=== PATIENT | female | born 2000 | race Two or more races ===

== ENCOUNTER 2021-07-12 21:40 | Observation (INO) | payer SELFPAY ==
--- NOTE | 2021-07-12 22:40 | PDOC ---
GENERAL General: 21yrs old 40 weeks admitted to Hospital 9cm dilated pt in active labor. ALLERGIES Allergies: Allergies Coded Allergies Type Severity Reaction Last Updated Verified No Known Drug Allergies 07/12/21 No ASSESSMENT & PLAN A&P Delivered an alive Male baby 8lbs 2.8oz at 22.14hours. EBL 300cc.No Problem. Midline Vaginal Tear sutured with 2 O chromic catgut sutures. Justifications for Admission Other Justification VIV BLANCO MD Jul 12, 2021 22:40
[2021-07-12] MEDS ORDERED: AMPICILLIN SODIUM 2 GM in IV NORMAL SALINE 100ML 100 ML IV ONE (23:30)
[2021-07-12] MEDS: IV RINGERS,LACTATED 1000ML 1,000 ML IV SCH (23:35)
[2021-07-13] MEDS: IV RINGERS,LACTATED 1000ML 1,000 ML IV SCH (01:26)
[2021-07-13 02:25] LABS: BILIRUBIN,URINE NEGATIVE (NEG); CLARITY,URINE CLEAR; COLOR,URINE AMBER; NITRITE,URINE NEGATIVE (NEG); PROTEIN,URINE 30 mg/dL (NEG-TRACE); UROBILINOGEN,URINE 0.2 mg/dL (0.2 mg/dL)
[2021-07-13 02:31] LABS: BARBITURATES NEG (NEG); BENZODIAZEPINES NEG (NEG); CANNABINOIDS NEG (NEG); COCAINE NEG (NEG); METHADONE NEG (NEG); OPIATES NEG (NEG); PHENCYCLIDINE NEG (NEG)
[2021-07-13 02:45] LABS: RBC,URINE >40 /HPF (0-2); WBC,URINE TNTC /HPF (0-4)
[2021-07-13 02:46] LABS: BACTERIA,URINE MODERATE /HPF (0-FEW)
[2021-07-13 02:47] LABS: AMPHETAMINE/METHAMPHETAMINE NEG (NEG)
== END 2021-07-13 03:50 | disposition home or self-care (01) ==
LOC: 3 SO LND 21:40
PROVIDERS: ADMIT Obstetrics & Gynecology; ATTEND Obstetrics & Gynecology
DX: O62.9 Abnormality of forces of labor, unspecified (principal); O46.93 Antepartum hemorrhage, unspecified, third trimester; O23.43 Unspecified infection of urinary tract in pregnancy, third trimester; Z3A.35 35 weeks gestation of pregnancy
CPT/HCPCS: 59025; 80307; 81001; 87086; 96361; 96365; G0378; J0290; J7120; G0379

== ENCOUNTER 2021-08-06 19:43 | Observation (INO) | payer SELFPAY ==
[2021-08-06] MEDS ORDERED: IV RINGERS,LACTATED 1000ML 1,000 ML IV PRN (19:45)
[2021-08-06 20:32] LABS: BILIRUBIN,URINE NEGATIVE (NEG); CLARITY,URINE CLOUDY; COLOR,URINE YELLOW; NITRITE,URINE NEGATIVE (NEG); PROTEIN,URINE 30 mg/dL (NEG-TRACE)
[2021-08-06 20:49] LABS: BACTERIA,URINE 0 /HPF (0-FEW); TRICHOMONAS,URINE PRESENT; WBC,URINE TNTC /HPF (0-4)
[2021-08-06] MEDS ORDERED: metroNIDAZOLE 500 MG TABLET PO ONE (22:00)
== END 2021-08-06 21:43 | disposition home or self-care (01) ==
LOC: 3 SO LND 19:43
PROVIDERS: ADMIT Obstetrics & Gynecology; ATTEND Obstetrics & Gynecology
DX: O62.9 Abnormality of forces of labor, unspecified (principal); O26.893 Other specified pregnancy related conditions, third trimester; R10.9 Unspecified abdominal pain; Z3A.39 39 weeks gestation of pregnancy
CPT/HCPCS: 81001; 87086; G0378; G0379; 59025

== ENCOUNTER 2021-08-21 19:47 | Inpatient (IN) | payer SELFPAY ==
[~2021-08-21] VITALS: Ht 160 cm; Wt 77.2 kg
[2021-08-21] MEDS ORDERED: IV RINGERS,LACTATED 1000ML 1,000 ML IV PRN (20:00)
[2021-08-21 20:59] LABS: BILIRUBIN,URINE NEGATIVE (NEG); CLARITY,URINE CLEAR; COLOR,URINE YELLOW; NITRITE,URINE NEGATIVE (NEG); PH,URINE 6.5 (<5.0-8.0); PROTEIN,URINE NEGATIVE (NEG-TRACE); UROBILINOGEN,URINE 0.2 mg/dL (0.2 mg/dL)
[2021-08-21 21:08] LABS: BACTERIA,URINE FEW /HPF (0-FEW); RBC,URINE 0 /HPF (0-2)
[2021-08-21 21:09] LABS: TRICHOMONAS,URINE PRESENT
[2021-08-21 21:32] LABS: BASO % 0 % (0-3); EOS # 0.1 x10^3/uL (0.0-0.7); EOS % 1 % (0-3); HEMATOCRIT 26.7 % (36.0-47.0); HEMOGLOBIN 8.8 g/dL (12.0-15.5); LYMPH # 2.5 x10^3/uL (1.0-4.8); LYMPH % 27 % (24-48); MEAN CORPUSCULAR HEMOGLOBIN 25 pg (25-35); MEAN CORPUSCULAR HGB CONC 33 g/dL (31-37); MEAN CORPUSCULAR VOLUME 77 fL (79-100); MONO # 0.6 x10^3/uL (0.0-1.1); MONO % 6 % (0-9); NEUT # 6.2 x10^3/uL (1.8-7.7); NEUT % 66 % (31-73); PLATELET COUNT 312 x10^3/uL (140-400); RED CELL DISTRIBUTION WIDTH 15.9 % (11.5-14.5); WHITE BLOOD COUNT 9.5 x10^3/uL (4.0-11.0)
[2021-08-21] MEDS ORDERED: AZITHROMYCIN 250 MG TABLET. PO ONE (22:00)
[2021-08-21] MEDS ORDERED: TERBUTALINE 1 MG/ML VIAL. SQ PRN (22:15)
[2021-08-21] MEDS ORDERED: BUTORPHANOL 2 MG/ML VIAL. IVP PRN ×2 (22:15)
[2021-08-21] MEDS ORDERED: 0.9 % SODIUM CHLORIDE 10 ML DISP.SYRIN. IV PRN (22:15)
[2021-08-21] MEDS ORDERED: LIDOCAINE 1% PF 30 ML VIAL. INJ PRN (22:15)
[2021-08-21] MEDS ORDERED: OXYTOCIN 30 UNIT/500 ML PREMIX 500 ML IV PRN ×2 (22:15)
[2021-08-21] MEDS ORDERED: ACETAMINOPHEN 325 MG TABLET. PO PRN (22:15)
--- NOTE | 2021-08-21 22:15 | PDOC1 ---
ALUM OPERATOR H&P Date of Admission: Date of Admission: Aug 21, 2021 at 19:47 History of Present Illness: EDC: 08/13/21 LMP: 11/06/20 21y @ 41.1 by L=18 presents with ctxs. The pt was initially thought to be 5 cm dilated, but on recheck an hour later she found to actually be 3 cm. Since the pt was a wk past her EDC, we discussed options of observation overnight followed by indxn tomorrow vs RLTCS. The pts first delivery was a 6 month stillbirth that came vaginally. Her next delivery was a TC/S for breech. Typically a C/S at term would be a LTCS, so we discussed mode of delivery at out initial encounter together. At that time I explained that two biggest factor in deciding b/t TOLAC or RLTCS was rate of reoccurrence and risk of rupture. Explained that her rate of rupture was low (~1-2%). There was some confusion in the medical record that she may be a classical C/S, but actually her skin incision was vertical midline. The pt decided tonight that she would prefer to be observed overnight and if she had not went into active labor by the morning to try an indxn. The pts has also been complicated by multiple pos Chl. She states that she has been taking the meds for the Chl. She was last txed 07/23/21, but has not been retested. She had not been with her partner for the last month at that time. The pt is also on Fe for anemia. PMH: Denies PSH: 2017 Meds: PNV, Fe All: NKDA Medical History: 6month stillbirth 2014, : yes. OBHx: 6 mo (stillborn), T LTCS for breech SH: no tob, no EtOH FH: noncontributory Medications: Meds: Current Medications Medications (Trade) Dose Ordered Sig/[place] Route PRN Reason Start Time Stop Time Status Last Admin Dose Admin Ringer's Solution 1,000 ml @ 125 mls/hr Q8H PRN IV hydration 08/21/21 20:00 08/21/21 21:28 Azithromycin (Zithromax) 1,000 mg 1X ONCE PO 08/21/21 22:00 08/21/21 22:01 DC 08/21/21 21:29 Allergies: Coded Allergies: No Known Drug Allergies (Unverified , 07/12/21) Physical Exam: PE: GENERAL: No apparent distress. Alert and oriented. HEENT: Head normocephalic, atraumatic. NECK: Supple LUNGS: Clear to auscultation. HEART: RRR, S1, S2 present, pulses intact ABDOMEN: Soft, positive bowel sounds. EXTREMITIES: No cyanosis or edema. NEUROLOGIC: Normal speech, normal tone PSYCHIATRIC: Normal affect, normal mood. SKIN: No ulceration. FHT: 120s +acels/no decels/mLTV [place]: 3-5 min SVE: 3/50/-3 Labs: Laboratory Tests Test 08/21/21 20:30 08/21/21 20:33 Urine Collection Type Unknown Urine Color Yellow Urine Clarity Clear Urine pH 6.5 (<5.0-8.0) Urine Specific [place] <=1.005 (1.000-1.030) Urine Protein Negative mg/dL (NEG-TRACE) Urine Glucose (UA) Negative mg/dL (NEG) Urine Ketones (Stick) Negative mg/dL (NEG) Urine Blood Negative (NEG) Urine Nitrite Negative (NEG) Urine Bilirubin Negative (NEG) Urine Urobilinogen Dipstick 0.2 mg/dL (0.2 mg/dL) Urine Leukocyte Esterase Moderate (NEG) Urine RBC 0 /HPF (0-2) Urine WBC 5-10 /HPF (0-4) Urine Squamous Epithelial Cells Mod /LPF Urine Bacteria Few /HPF (0-FEW) Urine Trichomonas Present White Blood Count 9.5 x10^3/uL (4.0-11.0) Red Blood Count 3.50 x10^6/uL (3.50-5.40) Hemoglobin 8.8 g/dL (12.0-15.5) L Hematocrit 26.7 % (36.0-47.0) L Mean Corpuscular Volume 77 fL (79-100) L Mean Corpuscular Hemoglobin 25 pg (25-35) Mean Corpuscular Hemoglobin Concent 33 g/dL (31-37) Red Cell Distribution Width 15.9 % (11.5-14.5) H Platelet Count 312 x10^3/uL (140-400) Neutrophils (%) (Auto) 66 % (31-73) Lymphocytes (%) (Auto) 27 % (24-48) Monocytes (%) (Auto) 6 % (0-9) Eosinophils (%) (Auto) 1 % (0-3) Basophils (%) (Auto) 0 % (0-3) Neutrophils # (Auto) 6.2 x10^3/uL (1.8-7.7) Lymphocytes # (Auto) 2.5 x10^3/uL (1.0-4.8) Monocytes # (Auto) 0.6 x10^3/uL (0.0-1.1) Eosinophils # (Auto) 0.1 x10^3/uL (0.0-0.7) Basophils # (Auto) 0.0 x10^3/uL (0.0-0.2) Laboratory Tests 08/21/21 20:33 Laboratory Tests 08/21/21 20:33 Assessment & Plan: A/P 21y @ 41.1 by L=18 1.) Ctxs no active laboring, will observe overnight, if does not go into active labor will begin indxn in the am 2.) Prev C/S x 1 - desires TOLAC 3.) H/o stillbirth 4.) Rub NI 5.) Anemia - Hgb 9.1, on Fe BID 6.) Chl pos last txed 07/23/21, ct/gc obtained on admission and pt txed again today 7.) TDAP given 07/22/21 8.) Fetus cat I FHT 9.) GBS neg KAREN LOZADA MD Aug 21, 2021 22:15
[2021-08-21 23:34] VITALS: BP 103/67
[2021-08-22] MEDS: IV RINGERS,LACTATED 1000ML 1,000 ML IV SCH ×2 (01:32→07:16)
[2021-08-22] MEDS ORDERED: ONDANSETRON PF 4 MG/2 ML VIAL. IVP PRN (04:05)
[2021-08-22] MEDS ORDERED: OXYTOCIN PREMIX 30 UNIT/500 ML NS BAG. IV ONE (05:30)
[2021-08-22] MEDS ORDERED: ROPIVacaine 0.2% PF 10 ML VIAL. ONE ×2 (09:52→10:00)
[2021-08-22] MEDS ORDERED: fentaNYL PF VIAL 100 MCG/2 ML VIAL ONE (09:52)
[2021-08-22] MEDS ORDERED: IV RINGERS,LACTATED 1000ML 1,000 ML IV ONE (10:00)
[2021-08-22] MEDS ORDERED: ePHEDrine PF IN SALINE 50 MG/10 ML SYRINGE. IV PRN (10:00)
[2021-08-22] MEDS ORDERED: fentaNYL PF VIAL 100 MCG/2 ML VIAL EPID ONE (10:00)
[2021-08-22] MEDS ORDERED: L&D EPIDURAL 50 ML SYRINGE. ONE (10:00)
[2021-08-22] MEDS ORDERED: NALOXONE 0.4 MG/ML VIAL. IV PRN (10:00)
[2021-08-22] MEDS ORDERED: ONDANSETRON PF 4 MG/2 ML VIAL. IV PRN (10:00)
--- NOTE | 2021-08-22 10:01 | PDOC ---
INSTRUCTOR WARPER PROGRESS NOTE Date of Service: DATE: 08/22/21 TIME: 10:00 Subjective: Pt observed overnight. SVE documented to 8 cm, but when check this am by me, very little cervical change. Pt with stretchy cervix so not surprising the difference in exams. Since minimal cervical change AROM performed. Light mec noted. After 2hrs time minimal change in cervical exam, so Pit started. Pt now requesting epidural. Objective: Vital Signs: Vital Signs Date Time Temp Pulse Resp B/P (MAP) Pulse Ox O2 Delivery O2 Flow Rate FiO2 08/21/21 23:34 97.8 90 20 103/67 (79) 98 Room Air 97.8 Vital Signs Date Time Temp Pulse Resp B/P (MAP) Pulse Ox O2 Delivery O2 Flow Rate FiO2 08/22/21 02:34 18 08/21/21 23:34 97.8 90 103/67 (79) 98 Room Air 97.8 Labs: Laboratory Tests Test 08/21/21 20:30 08/21/21 20:33 08/21/21 22:10 Urine Collection Type Unknown Urine Color Yellow Urine Clarity Clear Urine pH 6.5 (<5.0-8.0) Urine Specific [place] <=1.005 (1.000-1.030) Urine Protein Negative mg/dL (NEG-TRACE) Urine Glucose (UA) Negative mg/dL (NEG) Urine Ketones (Stick) Negative mg/dL (NEG) Urine Blood Negative (NEG) Urine Nitrite Negative (NEG) Urine Bilirubin Negative (NEG) Urine Urobilinogen Dipstick 0.2 mg/dL (0.2 mg/dL) Urine Leukocyte Esterase Moderate (NEG) Urine RBC 0 /HPF (0-2) Urine WBC 5-10 /HPF (0-4) Urine Squamous Epithelial Cells Mod /LPF Urine Bacteria Few /HPF (0-FEW) Urine Trichomonas Present White Blood Count 9.5 x10^3/uL (4.0-11.0) Red Blood Count 3.50 x10^6/uL (3.50-5.40) Hemoglobin 8.8 g/dL (12.0-15.5) L Hematocrit 26.7 % (36.0-47.0) L Mean Corpuscular Volume 77 fL (79-100) L Mean Corpuscular Hemoglobin 25 pg (25-35) Mean Corpuscular Hemoglobin Concent 33 g/dL (31-37) Red Cell Distribution Width 15.9 % (11.5-14.5) H Platelet Count 312 x10^3/uL (140-400) Neutrophils (%) (Auto) 66 % (31-73) Lymphocytes (%) (Auto) 27 % (24-48) Monocytes (%) (Auto) 6 % (0-9) Eosinophils (%) (Auto) 1 % (0-3) Basophils (%) (Auto) 0 % (0-3) Neutrophils # (Auto) 6.2 x10^3/uL (1.8-7.7) Lymphocytes # (Auto) 2.5 x10^3/uL (1.0-4.8) Monocytes # (Auto) 0.6 x10^3/uL (0.0-1.1) Eosinophils # (Auto) 0.1 x10^3/uL (0.0-0.7) Basophils # (Auto) 0.0 x10^3/uL (0.0-0.2) Treponema pallidum Antibody Nonreactive (Nonreactive) SARS-CoV-2 Antigen (Rapid) Negative (NEGATIVE) Laboratory Tests 08/21/21 20:33 Laboratory Tests 08/21/21 20:33 Physical Exam: GENERAL: No apparent distress. Alert and oriented. HEENT: Head normocephalic, atraumatic. NECK: Supple LUNGS: Clear to auscultation. HEART: RRR, S1, S2 present, pulses intact ABDOMEN: Soft, positive bowel sounds. EXTREMITIES: No cyanosis or edema. NEUROLOGIC: Normal speech, normal tone PSYCHIATRIC: Normal affect, normal mood. SKIN: No ulceration. FHT: 120s +acels/no decels/mLTV [place]: 1-2 min SVE: 50/-2 Assessment & Plan: A/P 21y @ 41.2 by L=18 1.) Latent labor ctxs overnight, minimal change. AROMed this am. No change control coordinator 2 hrs so Pit started 2.) Prev C/S x 1 - desires TOLAC 3.) H/o stillbirth 4.) Rub NI 5.) Anemia - Hgb 9.1, on Fe BID 6.) Chl pos last txed 07/23/21, ct/gc obtained on admission and pt txed again on admission 7.) TDAP given 07/22/21 8.) Fetus cat I FHT, light mec 9.) GBS neg KAREN LOZADA MD Aug 22, 2021 10:01
[2021-08-22] MEDS: L&D EPIDURAL SYRINGE 50 ML EPID PRN ×2 (13:10→16:00)
[2021-08-22] MEDS ORDERED: METHYLERGONOVINE MALEATE 0.2 MG/ML VIAL. IM ONE ×2 (17:08→17:15)
--- NOTE | 2021-08-22 17:18 | PDOC4 ---
VAGINAL DELIVERY DATE DATE: 08/22/21 TIME: 17:17 TIME Patient delivered a viable female over intact perineum at 1654. Wt 7 lb 12 oz. Apgars 8/9. Placenta delivered spontaneously, intact with 3VC. 2nd degree laceration repaired with 20 vicryl in nml fashion. Methergine given due to slight continuous bleeding. Good hemostasis noted. 20 U of Pit given with IVF. EBL 300 cc. Baby noted to have fever, so mother checked after delivery and found to have an elevated temp as well. WEIGHT Weight [ ] KAREN LOZADA MD Aug 22, 2021 17:18
[2021-08-22] MEDS ORDERED: ACETAMINOPHEN 325 MG TABLET. PO PRN (17:30)
[2021-08-22] MEDS ORDERED: TDaP (Adacel) per PROTOCOL. MC PRN (17:30)
[2021-08-22] MEDS ORDERED: oxyCODONE/APAP 5/325 1 TAB TABLET PO PRN (17:30)
[2021-08-22] MEDS ORDERED: PHENYLEPH/MINERAL OIL/PETROLAT RECTAL OINTMENT TUBE. RC PRN (17:30)
[2021-08-22] MEDS ORDERED: OXYTOCIN 30 UNIT/500 ML PREMIX 500 ML IV PRN (17:30)
[2021-08-22] MEDS ORDERED: MAGNESIUM HYDROXIDE 2,400 MG/30 ML ORAL.SUSP. PO PRN (17:30)
[2021-08-22] MEDS ORDERED: SIMETHICONE 80 MG TAB.CHEW PO PRN (17:30)
[2021-08-22] MEDS ORDERED: MAG HYDROX/ALUMINUM HYD/SIMETH 30 ML ORAL.SUSP PO PRN (17:30)
[2021-08-22] MEDS ORDERED: MMR per PROTOCOL. MC PRN (17:30)
[2021-08-22] MEDS ORDERED: ZOLPIDEM 5 MG TABLET. PO PRN (17:30)
[2021-08-22] MEDS ORDERED: diphenhydrAMINE HCL 25 MG CAPSULE PO PRN (17:30)
[2021-08-22] MEDS ORDERED: BENZOCAINE 20% TOPICAL AEROSOL SPRAY 57GM CAN. TP PRN (17:30)
[2021-08-22] MEDS ORDERED: 0.9 % SODIUM CHLORIDE 10 ML DISP.SYRIN. IV PRN (17:30)
[2021-08-22] MEDS ORDERED: HYDROCORTISONE 1% TOPICAL OINTMENT 30GM TUBE. TP PRN (17:30)
[2021-08-22] MEDS: IBUPROFEN 400 MG TABLET. PO PRN (19:15)
[2021-08-22 20:00] VITALS: BP 94/56
[2021-08-23] VITALS (7 sets, daily range): BP systolic 81–98; BP diastolic 36–57
[2021-08-23 05:02] LABS: HEMATOCRIT 21.4 % (36.0-47.0); RED BLOOD COUNT 2.76 x10^6/uL (3.50-5.40); RED CELL DISTRIBUTION WIDTH 15.7 % (11.5-14.5)
[2021-08-23 05:05] LABS: HEMOGLOBIN 6.8 g/dL (12.0-15.5)
--- NOTE | 2021-08-23 05:08 | NUR ---
Lab phoned unit with critical lab results. This am hgb 6.8. hgb on admit 08/22/[address] Martinez paged and given critical lab results of hgb 6.8. No further orders given at this time.
[2021-08-23] MEDS: PRENATAL MULTIVITAMIN TABLET. PO SCH (08:59)
[2021-08-23] MEDS: IBUPROFEN 400 MG TABLET. PO PRN (09:00)
[2021-08-23] MEDS: FERROUS SULFATE 325 MG TABLET. PO SCH ×2 (09:01→17:41)
[2021-08-23] MEDS: DOCUSATE SODIUM 100 MG CAPSULE. PO PRN ×2 (09:01→17:41)
[2021-08-23] MEDS ORDERED: metroNIDAZOLE 500 MG TABLET PO ONE (09:15)
--- NOTE | 2021-08-23 10:58 | PDOC ---
SUPERVISOR FRAMING MILL PROGRESS NOTE Date of Service: DATE: 08/23/21 TIME: 10:58 Subjective: Pt with good pain control. Lon PO. Voiding. Minimal lochia. Denies f/c Objective: Vital Signs: Vital Signs Date Time Temp Pulse Resp B/P (MAP) Pulse Ox O2 Delivery O2 Flow Rate FiO2 08/22/21 13:10 18 Room Air 08/22/21 20:00 99.6 88 94/56 (69) 97 99.6 Vital Signs Date Time Temp Pulse Resp B/P (MAP) Pulse Ox O2 Delivery O2 Flow Rate FiO2 08/23/21 08:00 98.6 78 16 85/36 (52) 98 Room Air 98.6 Labs: Laboratory Tests Test 08/23/21 04:30 White Blood Count 14.0 x10^3/uL (4.0-11.0) H Red Blood Count 2.76 x10^6/uL (3.50-5.40) L Hemoglobin 6.8 g/dL (12.0-15.5) *L Hematocrit 21.4 % (36.0-47.0) L Mean Corpuscular Volume 78 fL (79-100) L Mean Corpuscular Hemoglobin 25 pg (25-35) Mean Corpuscular Hemoglobin Concent 32 g/dL (31-37) Red Cell Distribution Width 15.7 % (11.5-14.5) H Platelet Count 233 x10^3/uL (140-400) Laboratory Tests 08/23/21 04:30 Laboratory Tests 08/23/21 04:30 Physical Exam: GENERAL: No apparent distress. Alert and oriented. HEENT: Head normocephalic, atraumatic. NECK: Supple LUNGS: Clear to auscultation. HEART: RRR, S1, S2 present, pulses intact ABDOMEN: Soft, positive bowel sounds. EXTREMITIES: No cyanosis or edema. NEUROLOGIC: Normal speech, normal tone PSYCHIATRIC: Normal affect, normal mood. SKIN: No ulceration. FFNT below umb No C/C/E Assessment & Plan: A/P 21y PPD #1 s/p 1.) PP doing well 2.) Fever immediately after delivery AF since, elevated WBC 3.) Rub NI 4.) Anemia - Hgb 8.8 -> 6.8, on Fe BID 5.) Chl pos last txed 07/23/21, txed again on admission, ct/c obtained on admission pending 6.) Trich on UA Flagyl ordered 7.) TDAP given 07/22/21 8.) Cont PP care KAREN LOZADA MD Aug 23, 2021 10:58
[2021-08-24] VITALS (7 sets, daily range): BP systolic 76–111; BP diastolic 53–65
[2021-08-24 05:38] LABS: BASO % 0 % (0-3); EOS # 0.2 x10^3/uL (0.0-0.7); EOS % 2 % (0-3); LYMPH # 2.7 x10^3/uL (1.0-4.8); LYMPH % 25 % (24-48); MEAN CORPUSCULAR HEMOGLOBIN 25 pg (25-35); MEAN CORPUSCULAR HGB CONC 32 g/dL (31-37); MEAN CORPUSCULAR VOLUME 78 fL (79-100); MONO # 0.6 x10^3/uL (0.0-1.1); MONO % 5 % (0-9); NEUT # 7.2 x10^3/uL (1.8-7.7); NEUT % 67 % (31-73); PLATELET COUNT 250 x10^3/uL (140-400); RED BLOOD COUNT 2.64 x10^6/uL (3.50-5.40); RED CELL DISTRIBUTION WIDTH 15.8 % (11.5-14.5); WHITE BLOOD COUNT 10.7 x10^3/uL (4.0-11.0)
[2021-08-24 05:58] LABS: HEMATOCRIT 20.5 % (36.0-47.0); HEMOGLOBIN 6.6 g/dL (12.0-15.5)
[2021-08-24] MEDS: DOCUSATE SODIUM 100 MG CAPSULE. PO PRN ×2 (08:17→18:32)
[2021-08-24] MEDS: FERROUS SULFATE 325 MG TABLET. PO SCH ×2 (08:17→18:32)
[2021-08-24] MEDS: PRENATAL MULTIVITAMIN TABLET. PO SCH (08:17)
[2021-08-24] MEDS: IBUPROFEN 400 MG TABLET. PO PRN ×2 (08:18→18:33)
--- NOTE | 2021-08-24 11:52 | PDOC ---
WIRE HARNESS DESIGN ENGINEER PROGRESS NOTE Date of Service: DATE: 08/24/21 TIME: 11:51 Subjective: Pt with good pain control. Lon PO. Voiding. Minimal lochia. Denies f/c. Pt denies lightheadedness or dizziness. Discussed transfusion vs Fe alone. Due to the pts sporadic Fe intact during it was felt that it would be better to transfuse Objective: Vital Signs: Vital Signs Date Time Temp Pulse Resp B/P (MAP) Pulse Ox O2 Delivery O2 Flow Rate FiO2 08/23/21 08:00 98.6 78 16 85/36 (52) 98 Room Air 98.6 Vital Signs Date Time Temp Pulse Resp B/P (MAP) Pulse Ox O2 Delivery O2 Flow Rate FiO2 08/24/21 11:18 98.2 85 16 76/53 98.2 08/24/21 08:00 96 Room Air Labs: Laboratory Tests Test 08/24/21 05:20 White Blood Count 10.7 x10^3/uL (4.0-11.0) Red Blood Count 2.64 x10^6/uL (3.50-5.40) L Hemoglobin 6.6 g/dL (12.0-15.5) *L Hematocrit 20.5 % (36.0-47.0) *L Mean Corpuscular Volume 78 fL (79-100) L Mean Corpuscular Hemoglobin 25 pg (25-35) Mean Corpuscular Hemoglobin Concent 32 g/dL (31-37) Red Cell Distribution Width 15.8 % (11.5-14.5) H Platelet Count 250 x10^3/uL (140-400) Neutrophils (%) (Auto) 67 % (31-73) Lymphocytes (%) (Auto) 25 % (24-48) Monocytes (%) (Auto) 5 % (0-9) Eosinophils (%) (Auto) 2 % (0-3) Basophils (%) (Auto) 0 % (0-3) Neutrophils # (Auto) 7.2 x10^3/uL (1.8-7.7) Lymphocytes # (Auto) 2.7 x10^3/uL (1.0-4.8) Monocytes # (Auto) 0.6 x10^3/uL (0.0-1.1) Eosinophils # (Auto) 0.2 x10^3/uL (0.0-0.7) Basophils # (Auto) 0.0 x10^3/uL (0.0-0.2) Laboratory Tests 08/24/21 05:20 Laboratory Tests 08/24/21 05:20 Physical Exam: GENERAL: No apparent distress. Alert and oriented. HEENT: Head normocephalic, atraumatic. NECK: Supple LUNGS: Clear to auscultation. HEART: RRR, S1, S2 present, pulses intact ABDOMEN: Soft, positive bowel sounds. EXTREMITIES: No cyanosis or edema. NEUROLOGIC: Normal speech, normal tone PSYCHIATRIC: Normal affect, normal mood. SKIN: No ulceration. FFNT below umb No C/C/E Assessment & Plan: A/P 21y PPD #2 s/p 1.) PP doing well 2.) Fever immediately after delivery AF since, WBC 9.5 -> 14.0 -> 10.7 3.) Rub NI MMR prior to d/c 4.) Anemia - Hgb 8.8 -> 6.8 -> 6.6, 1U pRBC 5.) Chl pos ARMINDA on admission neg, txed again on admission 6.) Trich on UA s/p Flagyl 7.) TDAP given 07/22/21 8.) D/C after transfusion KAREN LOZADA MD Aug 24, 2021 11:52
[2021-08-24] MEDS ORDERED: FERR325T14 PO (11:55)
[2021-08-24] MEDS ORDERED: DOCU-109 PO (11:55)
[2021-08-24] MEDS ORDERED: IBUP-1060 PO (11:55)
[2021-08-24 15:39] LABS: HEMOGLOBIN 7.6 g/dL (12.0-15.5)
[2021-08-24] MEDS ORDERED: MEASLES, MUMPS & RUBELLA VACC 0.5 ML VIAL. VAX SQ ONE (16:00)
[2021-08-24] MEDS ORDERED: FLU VACC QUAD 21-22 (6MOS+) PF 0.5 ML SYRINGE. VAX IM ONE (16:00)
--- NOTE | 2021-08-24 20:35 | NUR ---
Pt left stable and ambulatory accompanied by her sister and RN. Out to car baby placed in backseat rear facing
[2021-08-25 08:41] LABS: ISTAT BE VENOUS -5 mmol/L (0-3); ISTAT HCO3 VEN 21 mmol/L (24-28); ISTAT PCO2 VEN 40 mmHg (41-51); ISTAT PH VEN 7.33 (7.32-7.42); ISTAT PO2 VEN 27 mmHg (20-40); ISTAT SAT O2 VEN 47 %; ISTAT TCO2 VEN 22 mmol/L (21-32)
--- NOTE | 2021-08-25 10:35 | DS ---
DATE OF DISCHARGE: 08/24/2021 ADMISSION DIAGNOSES: 1. Intrauterine at 41 weeks and 1 day by last menstrual period equal to 18-week ultrasound. 2. Latent labor. 3. Previous section x 1, desires trial of labor. 4. History of stillbirth. 5. Rubella nonimmune. 6. Anemia. 7. Chlamydia positive. 8. Status post Tdap. 9. Group B Streptococcus negative. DISCHARGE DIAGNOSES: 1. Intrauterine at 41 weeks and 1 day by last menstrual period equal to 18-week ultrasound. 2. Latent labor. 3. Previous section x 1, desires trial of labor. 4. History of stillbirth. 5. Rubella nonimmune. 6. Anemia. 7. Chlamydia positive. 8. Status post Tdap. 9. Group B Streptococcus negative. 10. Induction of labor. PROCEDURE: Vaginal after section. BRIEF HOSPITAL COURSE: The patient is a 21-year-old 3, para 1-0-1-1, who presented to Labor and Delivery at 41 weeks and 1 day by LMP to 18-week ultrasound with contractions. The patient was thought to be 5 cm dilated, but on recheck an hour later, she was found to actually be 3 cm. Discussion was held with the patient regarding observation with induction of labor versus repeat transverse with the patient due to her being week past her due date. The patient ultimately desired a trial of labor, so was observed overnight. The patient was thought to have progressed to 8 cm the following morning, but her cervical exam was found to be not significantly changed as proceeding with the plan and the patient was AROM with minimal change after a couple of hours, requiring Pitocin augmentation to be started. The patient was started on Pitocin and ultimately reached complete later that evening. The patient delivered by vaginal delivery. See delivery note for full detail. Of note, the patient's first delivery was stillborn at 6 months followed by a low transverse for breech. There was some confusion in the medical record due to the type of scar that the patient had. At one point in the note, it was noted that she may have a classical , but this was clearly due to being confusing the skin incision with the uterine incision. Also, of note, the patient right after delivery, was found to have a fever, which resolved and the patient remained afebrile for the rest of the hospital course. The patient had been tested for chlamydia multiple times during the . She was due for a test of cure around the time of her admission. She was empirically treated during her labor and a test of cure for chlamydia was obtained. During the hospitalization, this test of cure returned negative. The patient was also noted to have a hemoglobin of 8.8 on admission and after delivery, was found to be 6.8. A discussion was held with the patient on day #1 regarding iron treatment versus a blood transfusion. It was felt due to the patient's hemoglobin actually decreasing during the course of her course that she likely may not be compliant enough with iron to be sent home on this regimen alone, so the patient was transfused 1 unit of packed red blood cell. After transfusion, the patient's hemoglobin was found to be 7.6 and the patient was subsequently discharged home. DISCHARGE INSTRUCTIONS: The patient was told not to lift anything greater than 20 pounds, have pelvic rest for 6 weeks. CALL IF: The patient was to call if she had fevers, chills, nausea, vomiting, abdominal pain or any additional questions or concerns. FOLLOWUP APPOINTMENT: The patient was to follow up on 10/07/2021 at 2:00 p.m. for a visit. DISCHARGE MEDICATIONS: The patient was given a prescription for Motrin 800 mg, 30 pills; Colace 100 mg, 30 pills and ferrous sulfate 325 mg, [address]: Ray TID: [id number] [facility]
--- NOTE | 2021-08-26 18:06 | PATHOLOGY ---
[facility] Accession Number: [id number] . 01 Material submitted: . placenta - PLACENTA AND CORD . 01 Clinical history: . TRIAL OF LABOR AFTER , L2, HX OF STILLBIRTH, HX C/S, MULTIPLE VARIABLE DECELS, AUGMENT WITH PITOCIN, GA 41.2 WEEKS, MECONIUM . 02 Diagnosis: 526 gram late term placenta of an estimated 41 weeks 2 days gestation with attached membranes and umbilical cord: - Placental weight for gestational age at approximate 50th percentile. - Acute chorionitis and early acute chorioamnionitis. - Meconium staining of placental membranes. - Intervillous thrombi, several. - Chorangiosis, focal. (ADRYANM:gee; 08/25/2021) R 08/26/2021 1744 Local . 02 Comment: There are no infarcts. (HALLIE:gee; 08/25/2021) . 02 Electronically signed: . Rudy Hermosillo MD, Pathologist NPI- [id number] . 01 Gross description: . Fixative: Formalin Labeled: Placenta Specimen received: Mae placenta with attached membranes and umbilical cord Trimmed placental weight: 526 g Dimensions: 15.6 x 15.2 x 2.7 cm membranes: [place]-de souza and translucent in appearance membrane rupture: 3.1 cm from placental disc surface: Intact, de souza-green, normal arborizing vascular pattern, predominantly detached amnion Umbilical cord: 46.2 cm in length, 1.0-1.6 cm in diameter Umbilical cord insertion: Central, 6.1 cm from the closest placental margin Number of umbilical vessels: 3 Umbilical cord appearance: White-parson to blue-de souza with minute helical twisting Maternal surface: Intact and complete with a slight amount of adherent blood coagulum Cut surfaces: Red-brown Abnormalities: Four pale parson to red-brown lesions ranging in size from 0.6-2.4 cm, which encompass approximately 5% of the total placental volume . Breaker Hand sections are submitted as follows: A1 surface vessels and proximal umbilical cord A2 membranes and umbilical cord A3-A6 senior customer service representative sections of maternal surface, with senior customer service representative sections of all four lesions. (CAA; 08/24/2021) QA/QA 08/24/2021 1238 Local . 02 Pathologist provided ICD-10: O41.1230, O77.0, O43.893 . 02 CPT . 706869 Specimen Comment: A courtesy copy of this report has been sent to [phone] Specimen Comment: Report sent to Performed at: [facility] [address] [facility] [address], [place] [id number] MD Pravin Whittington MD Phone: [phone] Performed at: 02 [facility] [address] [place], [place] [id number] MD Rudy Hermosillo MD Phone: [phone]
== END 2021-08-24 20:35 | disposition home or self-care (01) | DRG 806 ==
LOC: 3 SO LND 19:47 → OBSVTOIN 08-22 04:42 → 3 SO LND 08-22 20:13
PROVIDERS: ADMIT Obstetrics & Gynecology; ATTEND Obstetrics & Gynecology
PROC: 10E0XZZ Delivery of Products of Conception, External Approach (ICD-10-PCS; principal; 2021-08-22)
PROC: 0KQM0ZZ Repair Perineum Muscle, Open Approach (ICD-10-PCS; 2021-08-22)
PROC: 10907ZC Drainage of Amniotic Fluid, Therapeutic from Products of Conception, Via Natural or Artificial Opening (ICD-10-PCS; 2021-08-22)
PROC: 30283B1 Transfusion of Nonautologous 4-Factor Prothrombin Complex Concentrate into Vein, Percutaneous Approach (ICD-10-PCS; 2021-08-24)
DX: O34.211 Maternal care for low transverse scar from previous cesarean delivery (principal); O98.82 Other maternal infectious and parasitic diseases complicating childbirth; Z37.0 Single live birth; O99.02 Anemia complicating childbirth; A74.9 Chlamydial infection, unspecified; D64.9 Anemia, unspecified; O48.0 Post-term pregnancy; Z3A.41 41 weeks gestation of pregnancy; O70.1 Second degree perineal laceration during delivery; Z20.822 Contact with and (suspected) exposure to COVID-19
CPT/HCPCS: 36415; 36430; 81001; 82803; 85014; 85018; 85025; 85027; 86592; 86850; 86900; 86901; 86920; 87086; 87426; 87491; 87591; 88307; 90471; 90686; 90707; G0378; G0379; J0595; J2210; J2405; J2590; J2795; J3010; J7120; P9016; U0003; U0005